=== PATIENT | female | born 2000 | race Caucasian/White ===

== ENCOUNTER 2022-11-04 08:28 | Outpatient (CLI) | payer BC, SELFPAY | END 2022-11-04 08:29 | disposition home or self-care (01) | PROVIDERS: PCP Nurse Practitioner Family; Visit Provider Nurse Practitioner Family | DX: Z00.00 Encounter for general adult medical examination without abnormal findings (principal); Z13.6 Encounter for screening for cardiovascular disorders; Z13.1 Encounter for screening for diabetes mellitus; Z13.0 Encounter for screening for diseases of the blood and blood-forming organs and certain disorders involving the immune mechanism | CPT/HCPCS: 80061; 82947; 85025 ==

== ENCOUNTER 2023-11-24 08:19 | Outpatient (CLI) | payer BC, SELFPAY | END 2023-11-24 08:20 | disposition home or self-care (01) | PROVIDERS: PCP Nurse Practitioner Family; Visit Provider Nurse Practitioner Family | DX: Z13.220 Encounter for screening for lipoid disorders (principal); Z13.1 Encounter for screening for diabetes mellitus | CPT/HCPCS: 80061; 82947 ==

== ENCOUNTER 2024-11-25 10:57 | Outpatient (CLI) | payer BC, SELFPAY | END 2024-11-25 10:58 | disposition home or self-care (01) | PROVIDERS: PCP Nurse Practitioner Family; Visit Provider Nurse Practitioner Family | DX: N92.0 Excessive and frequent menstruation with regular cycle (principal) | CPT/HCPCS: 84443; 85025 ==

== ENCOUNTER 2024-12-01 11:03 | Outpatient (CLI) | payer BC, SELFPAY ==
--- NOTE | 2024-12-01 11:15 | CRLHL7_ITS ---
For Patients: As a result of the Century Cures Act, medical imaging exams and procedure reports are released immediately into your electronic medical record. You may view this report before your referring provider. If you have questions, please contact your health care provider. INDICATION: menorrhagia COMPARISON: None. TECHNIQUE: 2D amado-scale and color Doppler images were acquired of the pelvis using a transabdominal and transvaginal approach. Transvaginal imaging performed to better visualize the endometrial stripe and ovaries. FINDINGS: Sonographic images demonstrate a normal size and smooth outer contour of the uterus. Uterus measures 8.9 cm in length by 5.6 cm in AP diameter by 7.5 cm in transverse dimension. Endometrium measures 12.9 millimeters. No endometrial fluid. Small intramural fibroid on the left which measures 7 x 6 x 8 millimeters. The right ovary measures 3.1 x 2.2 x 2.0 cm in size and the left ovary measures 3.7 x 1.8 x 3.4 cm. The ovaries demonstrate normal arterial and venous blood flow on color Doppler analysis. There are no suspicious fluid collections within the cul-de-sac. Hypoechoic nonvascular cyst left ovary measures 2.2 x 1.1 x 1.8 cm consistent with a small collapsing cyst. IMPRESSION: Endometrial thickness 12.9 millimeters. 8 millimeter left-sided intramural fibroid. Dictated by Rafi Calle MD @ 12/05/2024 8:41:20 AM (Electronically Signed)
== END 2024-12-01 11:04 | disposition home or self-care (01) ==
LOC: US 11:04
PROVIDERS: PCP Nurse Practitioner Family; Visit Provider Nurse Practitioner Family
DX: N92.0 Excessive and frequent menstruation with regular cycle (principal); R93.89 Abnormal findings on diagnostic imaging of other specified body structures; D25.1 Intramural leiomyoma of uterus
CPT/HCPCS: 76830; 76856